=== PATIENT | male | born 1965 | race Two or more races ===

== ENCOUNTER → 2024-07-09 | Outpatient (CLI) | payer BC, SELFPAY ==
--- NOTE | 2024-07-09 09:39 | XR_ITS ---
Examination: Left elbow 3 views Technique: Elbow AP, oblique, lateral 3 views Exam date and time: July 09, 2024 1014 hours INDICATIONS: Left elbow pain beginning one week ago. FINDINGS: Mild elbow osteoarthritis No elbow fracture or dislocation Small posterior bony olecranon spur IMPRESSION: Mild elbow osteoarthritis
== END | disposition home or self-care (01) ==
PROVIDERS: PCP Nurse Practitioner Family; Referring Provider Nurse Practitioner Family; Visit Provider Nurse Practitioner Family
DX: M19.022 Primary osteoarthritis, left elbow (principal)
CPT/HCPCS: 73080

== ENCOUNTER 2024-09-16 16:00 | Outpatient (RCR) | payer BC, SELFPAY ==
--- NOTE | 2024-09-10 15:32 | PTNOTE_ITS ---
PT OP Initial Eval Patient Information Outpatient Physical Therapy Treatment Date: 09/10/24 Visit Reasons: left tennis elbow Medical Diagnosis: M77.12 Treatment Dx #1: L elbow pain Start of Care: 09/10/24 Date of Onset: 8 months ago Smoking Status Smoking Status: Never smoker Initial Assessment Subjective: Pt is 58 yr old male who reports L elbow pain x8 months that limits lifting and exercise tolerance. Increased pain with lifting and moving the elbow to straighten and moving it fast. 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 PMH: L knee A/S, HTN Imaging: Xray of L elbow mild elbow OA Pt goal: for the pain to go away to work out. 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 Pt ? has pain with resisted wrist extension, extensor tendon is TTP and pt has ? 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 Pt has positive testing for lateral ? epicondylitis. Eval followed by [facility] with materials. 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 Ind with [facility] ? 2. Pt will lift 10 lbs with <=1/10 pain in L elbow ? 4. Improved wrist strength to 4+/5 without pain ? 5. Decreased TTP from mod to min of L lateral elbow Treatment Plan ? 1. Manual therapy ? 2. Therex ? 3. Modalities as indicated, moist heat, ice, estim Frequency and Duration: 1-2x a week for 8 visits plus eval Certification Dates: 09/10/24 to 12/08/24 Procedure Charges OP PT Eval Mod Complex 30 minutes: Yes
--- NOTE | 2024-09-14 17:07 | PT.ODAYNRPT ---
PT Outpatient Daily Note OP Daily Note Outpatient Physical Therapy Treatment Date: 09/14/24 Visit Reasons: left tennis elbow Subjective: Same as evaluation Objective: See F/S for therex MT: STM L lateral elbow x7' with graston Assessment: Moderate tissue irritability of L elbow with twisting therex Plan: Continue per POC Length of Time (minutes) of Treatment: 30 Minutes Procedure Charges Therapeutic Exercise 30 minutes: Yes
--- NOTE | 2024-09-16 16:30 | PT.ODAYNRPT ---
PT Outpatient Daily Note OP Daily Note Outpatient Physical Therapy Treatment Date: 09/16/24 Visit Reasons: left tennis elbow Subjective: Continued pain L elbow Objective: See F/S for therex MT: STM L lateral elbow x7' with graston Assessment: Moderate tissue irritability of L elbow with twisting therex Plan: Continue per POC Length of Time (minutes) of Treatment: 30 Minutes Procedure Charges Therapeutic Exercise 30 minutes: Yes
== END 2024-09-18 23:59 | disposition home or self-care (01) ==
LOC: CPTX 16:00
PROVIDERS: PCP Nurse Practitioner Family; Referring Provider Orthopaedic Surgery; Visit Provider Orthopaedic Surgery
DX: M25.522 Pain in left elbow (principal); M77.12 Lateral epicondylitis, left elbow; I10 Essential (primary) hypertension
CPT/HCPCS: 97110; 97162

== ENCOUNTER 2024-10-15 16:00 | Outpatient (RCR) | payer BC, SELFPAY ==
--- NOTE | 2024-09-21 17:25 | PT.ODAYNRPT ---
PT Outpatient Daily Note OP Daily Note Outpatient Physical Therapy Treatment Date: 09/21/24 Visit Reasons: Left tennis elbow Subjective: A little less pain in L elbow Objective: See F/S for therex MT: STM L lateral elbow x7' with graston Assessment: Moderate tissue irritability of L elbow with twisting therex. Min TTP with manual therapy Plan: Continue per POC Length of Time (minutes) of Treatment: 30 Minutes Procedure Charges Therapeutic Exercise 30 minutes: Yes
--- NOTE | 2024-09-23 17:51 | PT.ODAYNRPT ---
PT Outpatient Daily Note OP Daily Note Outpatient Physical Therapy Treatment Date: 09/23/24 Visit Reasons: Left tennis elbow Subjective: A little less pain in L elbow Objective: See F/S for therex MT: STM L lateral elbow x7' with graston Assessment: Moderate tissue irritability of L elbow with twisting therex. Min TTP with manual therapy Plan: Continue per POC Length of Time (minutes) of Treatment: 30 Minutes Procedure Charges Therapeutic Exercise 30 minutes: Yes
--- NOTE | 2024-09-29 16:58 | PT.ODAYNRPT ---
PT Outpatient Daily Note OP Daily Note Outpatient Physical Therapy Treatment Date: 09/29/24 Visit Reasons: Left tennis elbow Subjective: Less pain in L elbow since last visit Objective: See F/S for therex MT: STM L lateral elbow x7' with graston Assessment: Less tissue irritability of L elbow with twisting therex. Min TTP with manual therapy Plan: Continue per POC Length of Time (minutes) of Treatment: 30 Minutes Procedure Charges Therapeutic Exercise 30 minutes: Yes
--- NOTE | 2024-10-07 16:57 | PT.ODAYNRPT ---
PT Outpatient Daily Note OP Daily Note Outpatient Physical Therapy Treatment Date: 10/07/24 Visit Reasons: Left tennis elbow Subjective: Less pain in L elbow since last visit Objective: See F/S for therex MT: STM L lateral elbow x7' with graston Assessment: Less tissue irritability of L elbow with twisting therex. Min TTP with manual therapy Plan: Continue per POC Length of Time (minutes) of Treatment: 30 Minutes Procedure Charges Therapeutic Exercise 30 minutes: Yes
--- NOTE | 2024-10-13 16:31 | PT.ODAYNRPT ---
PT Outpatient Daily Note OP Daily Note Outpatient Physical Therapy Treatment Date: 10/13/24 Visit Reasons: Left tennis elbow Subjective: Less pain in L elbow since last visit Objective: See F/S for therex MT: STM L lateral elbow x7' with graston Assessment: Less tissue irritability of L elbow with twisting therex. Min TTP with manual therapy Plan: Reassess Length of Time (minutes) of Treatment: 30 Minutes Procedure Charges Therapeutic Exercise 30 minutes: Yes
--- NOTE | 2024-10-15 18:20 | PT.ODS1RPT ---
PT OP Progress/Discharge Note Date of Service: 10/15/24 Progress Note/DC Note Progress Note/Discharge Note: DC Note Patient Information Visit Reasons: Left tennis elbow Service Continue Service or Discharge: Discharge Discharge Date: 10/15/24 Status Subjective: The elbow isn't hurting anymore Objective: See F/S for therex TTP: non TTP Wrist strength: 4+/5 L wrist extension Lift: 10 lbs without L elbow pain Assessment: Pt has attended 8/8 Rx sessions with very good progress to meet all goals. Pt has less tissue irritability of L elbow with twisting therex. The elbow is non- TTP with manual therapy and he has improved wrist strength to meet that goal. Pt miguel angel lift 10 lbs without pain. Plan: D/C with [facility] Procedure Charges Therapeutic Exercise 30 minutes: Yes
== END 2024-10-19 23:59 | disposition home or self-care (01) ==
LOC: CPTX 16:00
PROVIDERS: PCP Orthopaedic Surgery; Referring Provider Orthopaedic Surgery; Visit Provider Orthopaedic Surgery
DX: M25.522 Pain in left elbow (principal); M77.12 Lateral epicondylitis, left elbow; I10 Essential (primary) hypertension
CPT/HCPCS: 97110